=== PATIENT | male | born 1970 | race Caucasian/White ===

== ENCOUNTER → 2019-01-02 | Outpatient (CLI) | payer OTHER, SELFPAY ==
[2015-09-11 16:12] VITALS: BMI 24.6
[2019-01-02 17:56] LABS: Absolute Lymphocyte Count 2.49 X10^3/uL (0.83-4.51); Absolute Neutrophil Count 5.9 X10^3/uL (2.0-7.7); Basophil# 0.04 X10^3/uL; Basophil% 0.4 % (0-1); Eosinophil# 0.15 X10^3/uL; Eosinophils% 1.6 % (0-5); Hematocrit 48.5 % (40-54); Hemoglobin 16.1 g/dL (13.0-16.5); Lymphocyte # 2.49 X10^3/ul (4.0); Lymphocyte % 26.7 % (19-41); Mean Corp Hgb Conc 33.2 g/dL (32-36); Mean Corpuscular Hgb 29.2 pg (27.0-32.0); Mean Platelet Vol. 9.5 fl (6.2-12.0); Monocyte% 7.5 % (0-10); NRBC Flagged by Analyzer 0 % (0-5); Neutrophil # 5.91 X10^3/uL (2.7-7.7); Neutrophil % 63.4 % (47-70); Platelet Count 251 K/mm3 (150-450); RBC Distribution Width CV 13.2 % (11.6-14.6); RBC Distribution Width SD 42.8 fl (35.1-43.9); Red Blood Count 5.51 M/mm3 (4.6-6.2); White Blood Count 9.3 K/mm3 (4.4-11.0)
[2019-01-02 18:22] LABS: Anion Gap 7 (5-15); BUN 21 mg/dL (7-18); BUN/Creat Ratio 19.4 RATIO (10-20); Calcium,Total 9.3 mg/dL (8.5-10.1); Chloride 108 mmol/L (98-107); Cholesterol 256 mg/dL (200); Creatinine, Serum 1.08 mg/dL (0.70-1.30); EST Glomerular Filtration Rate 77 mL/min (>60); Est Glom Filt Rate - Afr Amer 93 mL/min (>60); Glucose 86 mg/dL (74-106); High Density Lipoprotein 45 mg/dL; Sodium Level 141 mmol/L (136-145); Thyroid Stim Hormone (TSH) 0.89 uIU/mL (0.358-3.74); Triglycerides 181 mg/dL; Very Low Density Lipoprotein 36 mg/dL (5-40)
[2019-01-02 18:53] LABS: HIV - WCH Non-Reactive (Nonreactive)
== END | disposition home or self-care (01) ==
LOC: MFPLAB 16:11
PROVIDERS: Family Provider Family Medicine; PCP Family Medicine; Referring Provider Family Medicine; Visit Provider Nurse Practitioner Adult Health
DX: R61 Generalized hyperhidrosis (principal); Z13.220 Encounter for screening for lipoid disorders; Z13.1 Encounter for screening for diabetes mellitus
CPT/HCPCS: 36415; 80048; 80061; 84443; 85025; 86703

== ENCOUNTER 2021-02-24 15:24 | Emergency (ER) | payer OTHER, SELFPAY ==
[2021-02-24] VITALS (8 sets, daily range): BP systolic 134–169; BP diastolic 80–96; PULSE 74–84; RESP 16; TEMP 36.6; O2SAT 97–98; BMI 25.8
--- NOTE | 2021-02-24 15:27 | EKG12_ITS ---
Test Reason : CP Blood Pressure : / mmHG Vent. Rate : 079 BPM Atrial Rate : 079 BPM P-R Int : 138 ms QRS Dur : 076 ms QT Int : 338 ms P-R-T Axes : 081 060 063 degrees QTc Int : 387 ms Normal sinus rhythm Normal ECG Confirmed by KALEB GUZMAN, LORETTA ([id number]), story editor SARABJIT COTTER ([id number]) on 03/01/2021 12:41:14 PM Referred By: CORONA Confirmed By:LORETTA MANUEL MD
--- NOTE | 2021-02-24 15:40 | RAD_ITS ---
STUDY: X-RAY CHEST REASON FOR EXAM: Male, 50 years old. Chest pain TECHNIQUE: Single AP portable view of the chest. COMPARISON: None. FINDINGS: There is hyperinflation of the lungs consistent with chronic obstructive lung disease (COPD). There is no demonstrated pleural abnormality. Normal size heart. Normal mediastinum and rea. There is prominence of the pulmonary hilar arteries without peripheral pulmonary vascular congestion, suggesting pulmonary hypertension. Normal visualized aortic arch and descending thoracic aorta. Normal visualized thoracic spine. Normal visualized ribs, clavicles, and shoulders. There is no demonstrated abnormality of the visualized soft tissue structures of the upper abdomen. RAD/Chest 1 View (Portable) IMPRESSION: Hyperinflation. Electronically Signed: Tio Kramer MD at 16:00 EDT , Service support ,
--- NOTE | 2021-02-24 15:57 | EDS_ITS ---
HPI <Dr. Simone Inman MD - Last Filed: 02/24/21 17:24> History of Present Illness Chief Complaint: Chest Pain Informant: patient and spouse/S.O. Onset/Context/Timing Onset: Hours (Onset at 1400) Activity at onset: sudden and rest Timing: Intermittent Quality: Positive for Tightness Location: Substernal, Right Chest and Left Chest Current Severity: Gone Maximum Severity: Severe Worsened By: Nothing Relieved By: Nothing Associated Symptoms: Positive for Nausea, Diaphoresis, Dyspnea and Lightheadedness; Negative for Vomiting, Cough, Fever, Acid Reflux and Palpita tions Narrative Narrative: Patient is a 50-year-old male with no sniffing past medical history who presents with chest tightness that was midsternal and bilateral radiating to his right jaw. She became lightheaded, diaphoretic and had nausea and dyspnea. He has no known history coronary disease. Mother had triple bypass surgery in her 50s. He is a smoker of 3/4 pack/day. He started the age of 15.. He denies black or maroon-colored stool. Denies history of hiatal hernia or reflux. He had a hamburger at noon. He has no intolerance to greasy or fried foods. There is no family history of cholelithiasis. Apparently he went hiking with his and daughter this weekend. When he had to carry her up an incline he became very short of breath. He is not a very active person. Prior Similar Symptoms: No Recent Illness/Hospitalization: No CVD Risk Factors: Positive for Family History 1' </=55; Negative for Hypertension, Diabetes and Hypercholesterolemia PE Risk Factors: Negative for Recent Travel/Surgery, Recent Immobilization, Prior DVT or PE, Cancer and OCP + Smoking + >/=35 TAD Risk Factors: Negative for Marfan's Syndrome, Hypertension and Family History PFSH <Dr. Simone Inman MD - Last Filed: 02/24/21 17:24> PFSH no medical history Home Medications NK 02/24/21 [History Last Taken Unknown] Allergy/AdvReac Type Severity Reaction Status Date / Time No Known Allergies Allergy Verified 02/24/21 15:26 Family History (Updated 02/24/21 @ 15:[address] Simone Inman MD) Other CVA (cerebral vascular accident) no surgical history Social History (Updated 02/24/21 @ 16:[address] Simone Inman MD) Smoking Status: Current every day smoker tobacco type: cigarettes alcohol intake: current alcohol intake frequency: a few times a month substance use type: does not use ROS <Dr. Simone Inman MD - Last Filed: 02/24/21 17:24> ROS ED Constitutional Constitutional ED: Denies chills, fever(s), subjective, sweats or weight loss Eyes Eyes: Denies blurry vision or change in vision ENT ENT ED: Denies ear pain, rhinorrhea or sore throat Cardiovascular Cardiovascular: Reports as per HPI; Denies orthopnea or paroxysmal nocturnal dyspnea Respiratory/Chest Respiratory/Chest: Reports dyspnea and dyspnea on exertion; Denies cough, orthopnea, paroxysmal nocturnal dyspnea or sputum Gastrointestinal Gastrointestinal: Reports nausea; Denies abdominal pain, constipation, diarrhea or vomiting Genitourinary Genitourinary ED: Denies dysuria, hematuria or urinary frequency Musculoskeletal Musculoskeletal: Denies arthralgias, myalgias or neck pain Integumentary Denies rash Neurologic Neurologic: Denies headache(s) or weakness Hematologic/Lymphatic Hematologic/Lymphatic: Denies easy bleeding or easy bruising EXAM <Dr. Simone Inman MD - Last Filed: 02/24/21 17:24> Physical Exam Const Vital Signs: 02/24/21 15:24 02/24/21 16:06 02/24/21 16:10 Temperature 98 F Temperature Source Temporal Pulse Rate 82 79 Respiratory Rate 16 16 Blood Pressure 140/92 H 134/80 H Blood Pressure Mean 108 98 Pulse Ox 97 97 98 Oxygen Delivery Method Room Air Room Air Room Air 02/24/21 16:23 02/24/21 17:22 02/24/21 18:41 Temperature Temperature Source Pulse Rate 74 80 Respiratory Rate 16 16 Blood Pressure 150/89 H 148/96 H Blood Pressure Mean 109 113 Pulse Ox 98 98 97 Oxygen Delivery Method Room Air Room Air Room Air 02/24/21 19:32 Temperature Temperature Source Pulse Rate 74 Respiratory Rate 16 Blood Pressure 148/96 H Blood Pressure Mean 113 Pulse Ox 98 Oxygen Delivery Method Room Air Positive well nourished and well developed General Appearance ED: well developed and NAD HEENT Reports TM's clear and moist mucous membranes normocephalic and atraumatic Tympanic Membrane ED: Yes TM's clear Eyes PERRL and EOMs intact bilaterally General Eye ED: Negative for pale conjunctiva or scleral icterus Neck no lymphadenopathy, supple and no JVD Chest Wall inspection of chest normal Resp normal respiratory effort Effort and Inspection: respiratory distress Cardio regular rate, regular rhythm, S1 normal heart sound, S2 normal heart sound and no murmurs GI normal to inspection, nondistended, normoactive bowel sounds, soft to palpation and non-tender Back/Spine no CVA tenderness and no thoracic nor lumbar tenderness Cervical Spine: Negative for cervical spine tenderness Extremity normal to inspection General Extremety ED: Negative for edema or tenderness General Extremity: Negative for edema Neuro oriented x3 and CN's II-XII intact bilaterally Sensorium / Orientation: awake and alert Psych mental status grossly normal Skin no rashes or lesions noted and no wounds <Dr. Zahra Gautam DO - Last Filed: 02/24/21 20:03> Physical Exam Const Vital Signs: 02/24/21 15:24 02/24/21 16:06 02/24/21 16:10 Temperature 98 F Temperature Source Temporal Pulse Rate 82 79 Respiratory Rate 16 16 Blood Pressure 140/92 H 134/80 H Blood Pressure Mean 108 98 Pulse Ox 97 97 98 Oxygen Delivery Method Room Air Room Air Room Air 02/24/21 16:23 02/24/21 17:22 02/24/21 18:41 Temperature Temperature Source Pulse Rate 74 80 Respiratory Rate 16 16 Blood Pressure 150/89 H 148/96 H Blood Pressure Mean 109 113 Pulse Ox 98 98 97 Oxygen Delivery Method Room Air Room Air Room Air 02/24/21 19:32 Temperature Temperature Source Pulse Rate 74 Respiratory Rate 16 Blood Pressure 148/96 H Blood Pressure Mean 113 Pulse Ox 98 Oxygen Delivery Method Room Air <Dr. Simone Inman MD - Last Filed: 02/24/21 17:24> Heart Score History: Moderately Suspicious ECG: Normal Age: >45 - <65 years Risk Factors: 1 or 2 Risk Factors Troponin: </= Normal Limit Score: 3 MDM <Dr. Simone Inman MD - Last Filed: 02/24/21 17:24> MDM MDM Narrative Medical decision making narrative: With no history of biliary disease, GI disease need to evaluate for cardiac versus noncardiac etiology. Story is somewhat concerning. Work-up was initiated. Lab Data Attestation: I reviewed the patient's lab results. Labs: Laboratory Results - last 24 hr 02/24/21 02/24/21 02/24/21 16:19 16:19 18:40 WBC 10.1 RBC 5.27 Hgb 16.0 Hct 46.8 MCV 88.8 MCH 30.4 MCHC 34.2 RDW Std Deviation 43.4 RDW Coeff of Rikki 13.2 Plt Count 267 MPV 9.1 Immature Gran % (Auto) 0.500 Neut % (Auto) 68.7 Lymph % (Auto) 21.9 [place] % (Auto) 7.3 Eos % (Auto) 1.3 Baso % (Auto) 0.3 Absolute Neuts (auto) 6.9 Absolute Lymphs (auto) 2.20 Nucleated RBC % 0 Sodium 140 Potassium 4.1 Chloride 108 H Carbon Dioxide 28.0 Anion Gap 4 L BUN 20 H Creatinine 0.96 Estim Creat Clear Calc 99.92 Est GFR (MDRD) Af Amer 106 Est GFR (MDRD) Non-Af 88 BUN/Creatinine Ratio 20.9 H Glucose 98 Calcium 9.1 Troponin I High Sens 4 6 Plan is 2-hour troponin. Since heart score is 3 if his delta is normal he can be discharged to home for outpatient follow-up. Will discuss with family. If they are agreeable with this plan will turn patient over to Dr. Gautam to make disposition after 2nd troponin. Radiography Chest X-Ray - ED: 1 View and Read by ED Physician (X-ray was interpreted by me at 1552. There is chronic changes noted. Cardiac silhouette size normal. Mediastinum is normal. Osseous structures are unremarkable.) Diagnostic Testing: Radiology Impression Chest X-Ray 02/24/21 15:40 IMPRESSION: Hyperinflation. Electronically Signed: Tio Kramer MD at 16:00 EDT , Service support , EKG Initial EKG: Attestation: I personally reviewed and interpreted this EKG as follows: Interpretation: Sinus Rhythm (Slightly prominent in the precordial leads. Will obtain old and check potassium. HI interval 138 ms. QS duration 78 ms. QT duration 3 and 38 ms. [place] is normal.Sinus rhythm with ventricular rate 79. The EKG is normal.) Follow-up EKG: Attestation: I personally reviewed and interpreted this EKG as follows: Interpretation: Sinus Rhythm (Sinus rhythm with a ventricular to 68. EKG is normal. EKG is unchanged from 1st EKG performed at 1528. This EKG was performed at 1720.) <Dr. Zahra Gautam, DO - Last Filed: 02/24/21 20:03> [facility] Lab Data Labs: Laboratory Results - last 24 hr 02/24/21 02/24/21 02/24/21 16:19 16:19 18:40 WBC 10.1 RBC 5.27 Hgb 16.0 Hct 46.8 MCV 88.8 MCH 30.4 MCHC 34.2 RDW Std Deviation 43.4 RDW Coeff of Rikki 13.2 Plt Count 267 MPV 9.1 Immature Gran % (Auto) 0.500 Neut % (Auto) 68.7 Lymph % (Auto) 21.9 [place] % (Auto) 7.3 Eos % (Auto) 1.3 Baso % (Auto) 0.3 Absolute Neuts (auto) 6.9 Absolute Lymphs (auto) 2.20 Nucleated RBC % 0 Sodium 140 Potassium 4.1 Chloride 108 H Carbon Dioxide 28.0 Anion Gap 4 L BUN 20 H Creatinine 0.96 Estim Creat Clear Calc 99.92 Est GFR (MDRD) Af Amer 106 Est GFR (MDRD) Non-Af 88 BUN/Creatinine Ratio 20.9 H Glucose 98 Calcium 9.1 Troponin I High Sens 4 6 Radiography Diagnostic Testing: Radiology Impression Chest X-Ray 02/24/21 15:40 IMPRESSION: Hyperinflation. Electronically Signed: Tio Kramer MD at 16:00 EDT , Service support , Discharge Plan Triage Chief Complaint: Chest Pain ED Provider: Zahra Gautam Dx/Rx/DC Orders Clinical Impression: Chest pain Instructions: ED Chest Pain, Uncertain Cause Prescriptions: No Action NK RF: 0 Primary Care Provider: Miguel Huitron Referrals: Miguel Huitron MD [Primary Care Provider] - Disposition Disposition: Home, Self Care
[2021-02-24] MEDS: Aspirin 81 MG TAB.CHEW 324 MG PO (16:08)
[2021-02-24 16:31] LABS: Absolute Neutrophil Count 6.9 X10^3/uL (2.0-7.7); Basophil# 0.03 X10^3/uL; Basophil% 0.3 % (0-1); Eosinophil# 0.13 X10^3/uL; Eosinophils% 1.3 % (0-5); Hematocrit 46.8 % (40-54); Lymphocyte % 21.9 % (19-41); Mean Corp Hgb Conc 34.2 g/dL (32-36); Mean Corpuscular Hgb 30.4 pg (27.0-32.0); Mean Corpuscular Volume 88.8 fL (80-94); Mean Platelet Vol. 9.1 fl (6.2-12.0); Monocyte# 0.73 X10^3/uL; Monocyte% 7.3 % (0-10); NRBC Flagged by Analyzer 0 % (0-5); Neutrophil # 6.91 X10^3/uL (2.7-7.7); Neutrophil % 68.7 % (47-70); Platelet Count 267 K/mm3 (150-450); RBC Distribution Width CV 13.2 % (11.6-14.6); RBC Distribution Width SD 43.4 fl (35.1-43.9); Red Blood Count 5.27 M/mm3 (4.6-6.2); White Blood Count 10.1 K/mm3 (4.4-11.0)
[2021-02-24 16:53] LABS: Anion Gap 4 (5-15); BUN 20 mg/dL (7-18); BUN/Creat Ratio 20.9 RATIO (10-20); Calcium,Total 9.1 mg/dL (8.5-10.1); Chloride 108 mmol/L (98-107); Creatinine, Serum 0.96 mg/dL (0.70-1.30); EST Glomerular Filtration Rate 88 mL/min (>60); Est Glom Filt Rate - Afr Amer 106 mL/min (>60); Estimated Creatinine Clearance 99.92 ml/min; Glucose 98 mg/dL (74-106); Potassium 4.1 mmol/L (3.5-5.1); Sodium Level 140 mmol/L (136-145); Troponin-I HS 4 pg/mL (3.0-78.0)
--- NOTE | 2021-02-24 17:19 | EKG12_ITS ---
Test Reason : REPEAT Blood Pressure : / mmHG Vent. Rate : 068 BPM Atrial Rate : 068 BPM P-R Int : 144 ms QRS Dur : 084 ms QT Int : 362 ms P-R-T Axes : 068 039 052 degrees QTc Int : 384 ms Normal sinus rhythm Normal ECG Confirmed by KALEB GUZMAN, LORETTA ([id number]), editorial cartoonist SARABJIT COTTER ([id number]) on 03/01/2021 12:41:31 PM Referred By: RANDY Confirmed By:LORETTA MANUEL MD
[2021-02-24 19:14] LABS: Troponin-I HS 6 pg/mL (3.0-78.0)
--- NOTE | 2021-02-24 19:20 | NURSING ---
NO OLD EKGS
== END 2021-02-24 20:16 | disposition home or self-care (01) ==
PROVIDERS: Emergency Medicine; Emergency Provider Emergency Medicine; PCP Family Medicine
DX: R07.9 Chest pain, unspecified (principal); F17.210 Nicotine dependence, cigarettes, uncomplicated
CPT/HCPCS: 36415; 71045; 80048; 84484; 85025; 87426; 93005; 99284; A4216

== ENCOUNTER 2022-06-21 09:55 | Emergency (ER) | payer OTHER, SELFPAY ==
[2022-06-21 09:56] VITALS: BP 147/94; PULSE 86; RESP 14; TEMP 36.3; O2SAT 99; BMI 26.0
--- NOTE | 2022-06-21 10:28 | VDLE_ITS ---
Reason For Study: Pain Procedure LEFT This is a venous duplex using B-mode, color GSV is normal. flow and spectral Doppler. CFV is compressible, spontaneous, phasic, Exam performed portable in ED. competent, and demonstrates normal A preliminary report was called and/or faxed augmentation. to Dr. Rosales. FV is compressible, spontaneous, phasic, competent and demonstrates normal augmentation. POP V is compressible, spontaneous, phasic, competent and demonstrates normal augmentation. T/P Trunk is compressible. PTV is compressible. LT PerV is compressible. VL/Venous Duplex US, Unilateral Interpretation Summary There is no evidence of left lower extremity deep vein thrombosis. Left great s aphenous vein appears patent and compressible segmentally. Ordering Physician: Qamar Rosales Referring Physician: Miguel Huitron Performed By: Radha Brian RVT
--- NOTE | 2022-06-21 10:29 | EKG12_ITS ---
Test Reason : GENERAL Blood Pressure : / mmHG Vent. Rate : 076 BPM Atrial Rate : 076 BPM P-R Int : 148 ms QRS Dur : 078 ms QT Int : 338 ms P-R-T Axes : 000 067 145 degrees QTc Int : 380 ms Normal sinus rhythm Low voltage QRS (Limb Leads) Lateral infarct , age undetermined Abnormal ECG Cannot exclude limb lead misplacement Recommend Repeat ECG Confirmed by KALEB GUZMAN, LORETTA ([id number]), sports editor SARABJIT COTTER ([id number]) on 06/23/2022 9:23:05 AM Referred By: Confirmed By:LORETTA MANUEL MD
--- NOTE | 2022-06-21 10:30 | EX.ED.DYSGE1 ---
HPI History of Present Illness Chief Complaint: General Illness Narrative Narrative: 51-year-old male presenting for evaluation. He states that Monday he started had some pain behind his left knee. He states that has been worsening. He denies any trauma. No previous surgery on the left knee. He is ambulatory with antalgic gait. Patient states that he took ibuprofen for this and its not really helping. He has trouble fully extending his leg and fully flexing his leg on the left at the knee. He has not had a fever. He does report that over the last 24 hours he feels a little bit short of breath. He states he feels a little bit lightheaded and nauseous. He has not vomited. No constipation or diarrhea. He denies any chest pain. No recent travel, history of cancer, recent surgery, immobilization or bedbound, use of hormones. Denies history of DVT/PE. PFSH PFSH Home Medications naproxen 500 mg tablet (Naprosyn) 500 mg PO BID PRN pain #20 tabs 06/21/22 [Rx Last Taken Unknown] Allergy/AdvReac Type Severity Reaction Status Date / Time No Known Allergies Allergy Verified 06/21/22 09:57 Family History Other CVA (cerebral vascular accident) Social History Smoking Status: Current every day smoker tobacco type: cigarettes alcohol intake: current alcohol intake frequency: a few times a month substance use type: does not use ROS ROS ED Constitutional Constitutional ED: Denies chills or fever(s) Eyes Eyes: Denies change in vision or diplopia ENT ENT ED: Denies rhinorrhea or sore throat Cardiovascular Cardiovascular: Denies chest pain or palpitations Respiratory/Chest Respiratory/Chest: Reports cough and dyspnea Gastrointestinal Gastrointestinal: Reports nausea; Denies abdominal pain, constipation, diarrhea or vomiting Genitourinary Genitourinary ED: Denies dysuria or hematuria Musculoskeletal Musculoskeletal: Denies arthralgias or back pain Integumentary Denies abscess or Abrasions Neurologic Neurologic: Denies headache(s) or paresthesias Psychiatric Psychiatric: Denies anxiety or depression EXAM Physical Exam Const Vital Signs: 06/21/22 09:56 06/21/22 10:45 06/21/22 12:43 Temperature 97.3 F L Temperature Source Temporal Pulse Rate 86 Respiratory Rate 14 16 Respiratory Effort Normal Non-Labored Respiratory Pattern Normal Blood Pressure 147/94 H Blood Pressure Mean 111 Pulse Ox 99 Oxygen Delivery Method Room Air Positive well nourished General Appearance ED: NAD; Negative for pallor HEENT Reports moist mucous membranes Eyes PERRL and EOMs intact bilaterally Neck no lymphadenopathy Resp normal respiratory effort and clear to auscultation bilaterally Cardio regular rate and regular rhythm GI normal to inspection, nondistended, normoactive bowel sounds Extremity Extremity Narrative: Tenderness to palpation posterior to the left knee. Patient has ability to flex and extend the left knee pretty briskly but is not able to get it fully extended and is unable to flex it fully.. He states he feels tight behind the knee. No rashes. No bony tenderness. No cords palpated. Neuro oriented x3 and CN's II-XII intact bilaterally Motor Exam: strength 5/5 throughout Psych mental status grossly normal Skin no rashes or lesions noted General Skin Exam: Negative for jaundice or pallor MDM MDM MDM Narrative Medical decision making narrative: Patient presenting with left knee pain which has been present for couple of days. Describes it as posterior to the left knee. He denies any trauma. No risk factors for DVT. He states that he went to the urgent care who told him to come to the ER due to the shortness of breath and the left knee pain and a concern for blood clot. Patient is PERC negative. I did obtain a duplex of the left lower extremity to evaluate the leg and there is no acute blood clots here. Left knee x-ray my interpretation shows no acute fracture or subluxation. Radiologist interprets this as chondrocalcinosis of the left meniscus. Chest x-ray my interpretation shows no acute cardiopulmonary process. Radiology services agrees. EKG was performed to assess for dysrhythmia and there is normal sinus rhythm with a ventricular 76 bpm without sign of ischemic change. High-sensitivity troponin is 5. I tested him for COVID and influenza today and these are both negative. Patient counseled on findings. I do not believe he has a septic knee although he is having some pain. I will put him on Naprosyn. He is to use ice and rest as well. He was given orthopedic follow-up if he starts to hurt more or continues to be painful. Impression: 1. Dyspnea history of 2. Left posterior knee pain Lab Data Attestation: I reviewed the patient's lab results. Labs: Laboratory Results - last 24 hr 06/21/22 06/21/22 06/21/22 10:40 10:40 11:05 WBC 13.4 H RBC 5.06 Hgb 15.6 Hct 45.6 MCV 90.1 MCH 30.8 MCHC 34.2 RDW Std Deviation 45.0 H RDW Coeff of Rikki 13.7 Plt Count 272 MPV 9.0 Immature Gran % (Auto) 0.600 Neut % (Auto) 78.1 H Lymph % (Auto) 13.5 L [place] % (Auto) 6.7 Eos % (Auto) 0.8 Baso % (Auto) 0.3 Absolute Neuts (auto) 10.5 H Absolute Lymphs (auto) 1.81 Nucleated RBC % 0 Sodium Cancelled 140 Potassium Cancelled 4.3 Chloride Cancelled 109 H Carbon Dioxide Cancelled 24.0 Anion Gap Cancelled 7 BUN Cancelled 18 Creatinine Cancelled 1.04 Estim Creat Clear Calc Cancelled 91.20 Est GFR (MDRD) Af Amer Cancelled 96 Est GFR (MDRD) Non-Af Cancelled 80 BUN/Creatinine Ratio Cancelled 17.3 Glucose Cancelled 114 H Calcium Cancelled 8.7 Total Bilirubin Cancelled 0.40 AST Cancelled 19 ALT Cancelled 24 Alkaline Phosphatase Cancelled 63 Troponin I High Sens Cancelled 5 Total Protein Cancelled 6.8 Albumin Cancelled 3.4 Globulin Cancelled 3.4 Albumin/Globulin Ratio Cancelled 1.0 Radiography Diagnostic Testing: Clinical Impression(s) from Imaging Studies Venous Doppler Study 06/21/22 10:28 Interpretation Summary There is no evidence of left lower extremity deep vein thrombosis. Left great saphenous vein appears patent and compressible segmentally. Ordering Physician: Qamar Rosales Referring Physician: Miguel Huitron Performed By: Radha Brian RVT Knee X-Ray 06/21/22 10:32 IMPRESSION: Calcification of the medial and lateral menisci in keeping with chondrocalcinosis. Electronically Signed: Tio Kramer MD at 11:34 EST , Chest X-Ray 06/21/22 11:18 IMPRESSION: Hyperinflation. The lungs are clear. Electronically Signed: Tio Kramer MD at 11:35 EST , Discharge Plan Triage Chief Complaint: General Illness ED Provider: Qamar Rosales Dx/Rx/DC Orders Clinical Impression: Chondrocalcinosis Instructions: Knee Pain, ED Dyspnea Prescriptions: New naproxen [Naprosyn] 500 mg tablet 500 mg PO BID PRN (Reason: pain) Qty: 20 0RF Primary Care Provider: Thai Arteaga Referrals: Oswaldo Monsivais DO [Med Staff - Active Staff] - 3-5 Days Miguel Huitron MD [Med Staff - Active Staff] - Disposition Disposition: Home, Self Care Discharge Date/Time: 06/21/22 12:43
--- NOTE | 2022-06-21 10:32 | RAD_ITS ---
STUDY: X-RAY - LEFT KNEE REASON FOR EXAM: Male, 51 years old. Posterior knee pain. TECHNIQUE: 4 view(s) of the knee. COMPARISON: None. FINDINGS: Normal visualized distal femur. Normal visualized proximal tibia and fibula. Normal proximal tibiofibular articulation. Normal medial femorotibial compartment. Normal lateral femorotibial compartment. Normal patellofemoral articulation. There is calcification of the medial and lateral menisci suggestive of a chondrocalcinosis. RAD/Knee 4 or More Views IMPRESSION: Calcification of the medial and lateral menisci in keeping with chondrocalcinosis. Electronically Signed: Tio Kramer MD at 11:34 EST ,
[2022-06-21 10:46] LABS: Absolute Lymphocyte Count 1.81 X10^3/uL (0.83-4.51); Absolute Neutrophil Count 10.5 X10^3/uL (2.0-7.7); Basophil# 0.04 X10^3/uL; Basophil% 0.3 % (0-1); Eosinophil# 0.11 X10^3/uL; Eosinophils% 0.8 % (0-5); Hematocrit 45.6 % (40-54); Hemoglobin 15.6 g/dL (13.0-16.5); Lymphocyte # 1.81 X10^3/ul (0.83-4.51); Lymphocyte % 13.5 % (19-41); Mean Corp Hgb Conc 34.2 g/dL (32-36); Mean Corpuscular Hgb 30.8 pg (27.0-32.0); Mean Corpuscular Volume 90.1 fL (80-94); Monocyte% 6.7 % (0-10); NRBC Flagged by Analyzer 0 % (0-5); Neutrophil # 10.45 X10^3/uL (2.7-7.7); Neutrophil % 78.1 % (47-70); Platelet Count 272 K/mm3 (150-450); RBC Distribution Width CV 13.7 % (11.6-14.6); Red Blood Count 5.06 M/mm3 (4.6-6.2); White Blood Count 13.4 K/mm3 (4.4-11.0)
--- NOTE | 2022-06-21 11:18 | RAD_ITS ---
STUDY: X-RAY CHEST REASON FOR EXAM: Male, 51 years old. Dyspnea. TECHNIQUE: Single AP portable view of the chest. COMPARISON: Comparison is made with prior study dated 02/24/2021. FINDINGS: EKG electrodes are seen. Hyperinflation. The lungs are clear. There is no demonstrated pleural abnormality. Normal size heart. Normal mediastinum and rea. Normal visualized pulmonary arteries. Normal visualized aortic arch and descending thoracic aorta. Normal visualized thoracic spine. Normal visualized ribs, clavicles, and shoulders. There is no demonstrated abnormality of the visualized soft tissue structures of the upper abdomen. RAD/Chest 1 View (Portable) IMPRESSION: Hyperinflation. The lungs are clear. Electronically Signed: Tio Kramer MD at 11:35 EST ,
[2022-06-21 11:28] LABS: AST(SGOT) 19 U/L (15-37); Alanine Aminotransfer ALT/SGPT 24 U/L (16-61); Albumin, Serum 3.4 g/dL (3.2-5.0); Alkaline Phosphatase 63 U/L (45-117); Anion Gap 7 (5-15); BUN 18 mg/dL (7-18); BUN/Creat Ratio 17.3 RATIO (10-20); Calcium,Total 8.7 mg/dL (8.5-10.1); Chloride 109 mmol/L (98-107); Creatinine, Serum 1.04 mg/dL (0.70-1.30); EST Glomerular Filtration Rate 80 mL/min (>60); Est Glom Filt Rate - Afr Amer 96 mL/min (>60); Globulin 3.4 g/dL (2.2-4.2); Glucose 114 mg/dL (74-106); Potassium 4.3 mmol/L (3.5-5.1); Protein, Total 6.8 g/dL (6.4-8.2); Sodium Level 140 mmol/L (136-145); Troponin-I HS 5 pg/mL (3.0-78.0)
[2022-06-21 12:43] VITALS: RESP 16
== END 2022-06-21 12:43 | disposition home or self-care (01) ==
PROVIDERS: Emergency Provider Student in an Organized Health Care Education/Training Program; PCP Internal Medicine; Visit Provider Student in an Organized Health Care Education/Training Program
DX: M25.562 Pain in left knee (principal); F17.210 Nicotine dependence, cigarettes, uncomplicated; R06.02 Shortness of breath; R11.0 Nausea; R07.9 Chest pain, unspecified; Z20.822 Contact with and (suspected) exposure to COVID-19
CPT/HCPCS: 71045; 73564; 80053; 84484; 85025; 87428; 93005; 93971; 99283; A4216